=== PATIENT | male | born 1995 | race Caucasian/White ===

== ENCOUNTER 2021-07-27 13:57 | Emergency (ER) | payer MEDICAID ==
[2021-07-27] MEDS ORDERED: Metoclopramide 10 MG/2 ML SDV IVPUSH ONE (14:20)
[2021-07-27] MEDS ORDERED: Sodium Chloride 0.9% 10 ML Syringe FLUSH PRN (14:20)
[2021-07-27] MEDS ORDERED: Sodium Chloride 0.9% 1,000 ML IV ONE (14:20)
--- NOTE | 2021-07-27 14:42 | EDM.PDOC ---
ED HPI GENERAL MEDICAL PROBLEM - General Chief Complaint: Gastrointestinal Problem Stated Complaint: VOMITING Time Seen by Provider: 07/27/21 14:05 Source of Information: Reports: Patient History Limitations: Reports: No Limitations - History of Present Illness INITIAL COMMENTS - FREE TEXT/NARRATIVE: 26-year-old male presents the emergency department with complaints of vomiting. States he started vomiting approximately 5 AM this morning and has vomited approximately 5 times. He denies any fever chills or diarrhea associated with this. He denies any cough or shortness of breath or body aches. States he did have a bowel movement today and it was hard. States he only has a bowel movement every 2 to 3 days. States he had Thanksgiving meal yesterday and no one else that he ate with is ill. States he does smoke marijuana 3 times daily. Last smoked yesterday. Denies any issues with reflux. States he still has his appendix and gallbladder. - Related Data Allergies Allergy/AdvReac Type Severity Reaction Status Date / Time No Known Allergies Allergy Verified 07/27/21 14:07 Home Meds: Home Meds . [No Known Home Meds] 07/27/21 [History] Past Medical History Psychiatric History: Reports: ADHD, Depression - Infectious Disease History Infectious Disease History: Reports: None Social & Family History - Tobacco Use Tobacco Use Status *Q: Never Tobacco User - Caffeine Use Caffeine Use: Reports: Coffee, Soda - Recreational Drug Use Recreational Drug Use: No Other Recreational Drug Type: had medical marijuana card for anxiety and depression ED ROS GENERAL - Review of Systems Review Of Systems: Comprehensive ROS is negative, except as noted in HPI. ED EXAM, GI/ABD - Physical Exam Exam: See Below Exam Limited By: No Limitations General Appearance: Alert, WD/WN, No Apparent Distress Ears: Normal External Exam, Hearing Grossly Normal Nose: Normal Inspection Throat/Mouth: Normal Inspection, Normal Lips, Normal Voice, No Airway Compromise Head: Atraumatic Neck: Normal Inspection, Supple Respiratory/Chest: No Respiratory Distress, Lungs Clear, Normal Breath Sounds, No Accessory Muscle Use, Chest Non-Tender Cardiovascular: Normal Peripheral Pulses, Regular Rate, Rhythm, No Edema, No Murmur GI/Abdominal Exam: Normal Bowel Sounds, Soft, Non-Tender, No Distention (Male) Exam: Deferred Rectal (Males) Exam: Deferred Back Exam: Normal Inspection, Full Range of Motion Extremities: Normal Inspection, Normal Range of Motion, Non-Tender, No Pedal Edema, Normal Capillary Refill Neurological: Alert, Oriented, Normal Cognition Psychiatric: Normal Affect, Normal Mood Skin Exam: Warm, Dry, Intact, Normal Color, No Rash Lymphatic: No Adenopathy Course - Vital Signs Text/Narrative:: As stated above, patient presents with vomiting without abdominal pain or diarrhea. He is not febrile. The time of my exam, the patient is hemodynamically stable. Physical exam is unremarkable. He denies any abdominal discomfort with palpation. Will obtain a flatplate of the abdomen. Will also obtain lab studies to include a CBC, CMP, magnesium and a C-reactive protein. Patient will receive a liter of IV fluids as well as Reglan as he is likely dehydrated. Last Recorded V/S: Last Vital Signs Temp 97.0 F 07/27/21 14:12 Pulse 85 07/27/21 14:12 Resp 20 07/27/21 14:12 BP 124/84 07/27/21 14:12 Pulse Ox 97 07/27/21 14:12 - Orders/Labs/Meds Orders: Active Orders 24 hr Category Date Time Status Abdomen 1V Flat [CR] Stat Exams 07/27/21 14:20 Taken C-REACTIVE PROTEIN [CHEM] Stat Lab 07/27/21 14:40 Received COMPREHENSIVE METABOLIC PN,CMP [CHEM] Stat Lab 07/27/21 14:40 Received CORONAVIRUS COVID-19 RAND [MOLEC] Stat Lab 07/27/21 14:21 Ordered MAGNESIUM [CHEM] Stat Lab 07/27/21 14:40 Received UA RFX ZURDO AND CULT IF INDIC [URIN] Stat Lab 07/27/21 14:21 Ordered Sodium Chloride 0.9% [Saline Flush] Med 07/27/21 14:20 Active 10 ml FLUSH ASDIRECTED PRN Saline Lock Insert [OM.PC] Stat Oth 07/27/21 14:20 Ordered Medication Orders Sodium Chloride (Sodium Chloride 0.9% 10 Ml Syringe) 10 ml FLUSH ASDIRECTED PRN PRN Reason: Keep Vein Open Last Admin: 07/27/21 14:50 Dose: 10 ml Documented by: JOSHUA Labs: Laboratory Tests 07/27/21 Range/Units 14:40 WBC 11.42 H (4.23-9.07) K/mm3 RBC 4.80 (4.63-6.08) M/mm3 Hgb 15.3 (13.7-17.5) gm/dl Hct 43.6 (40.1-51.0) % MCV 90.8 (79.0-92.2) fl MCH 31.9 (25.7-32.2) pg MCHC 35.1 (32.2-35.5) g/dl RDW Std Deviation 41.8 (35.1-43.9) fL Plt Count 232 (163-337) K/mm3 MPV 10.4 (9.4-12.3) fl Neut % (Auto) 81.0 H (34.0-67.9) % Lymph % (Auto) 10.4 L (21.8-53.1) % Mccracken % (Auto) 7.4 (5.3-12.2) % Eos % (Auto) 0.9 (0.8-7.0) Baso % (Auto) 0.2 (0.1-1.2) % Neut # (Auto) 9.26 H (1.78-5.38) K/mm3 Lymph # (Auto) 1.19 L (1.32-3.57) K/mm3 Mccracken # (Auto) 0.84 H (0.30-0.82) K/mm3 Eos # (Auto) 0.10 (0.04-0.54) K/mm3 Baso # (Auto) 0.02 (0.01-0.08) K/mm3 Meds: Medications Generic Name Dose Route Start Last Admin Trade Name Freq PRN Reason Stop Dose Admin Sodium Chloride 10 ml 07/27/21 14:20 07/27/21 14:50 Sodium Chloride 0.9% 10 Ml Syringe FLUSH 10 ml ASDIRECTED PRN Administration Keep Vein Open Discontinued Medications Generic Name Dose Route Start Last Admin Trade Name Freq PRN Reason Stop Dose Admin Sodium Chloride 1,000 mls @ 999 mls/hr 07/27/21 14:20 07/27/21 14:50 Normal Saline IV 07/27/21 15:20 999 mls/hr ONETIME ONE Administration Metoclopramide HCl 7.5 mg 07/27/21 14:20 07/27/21 14:50 Metoclopramide 10 Mg/2 Ml Sdv IVPUSH 07/27/21 14:21 7.5 mg ONETIME ONE Administration - Re-Assessments/Exams Free Text/Narrative Re-Assessment/Exam: 07/27/21 15:05 Nursing staff notifies me that patient left. Departure - Departure Time of Disposition: 15:04 Disposition: Eloped 07 Condition: Good Clinical Impression: Vomiting - Discharge Information Referrals: Mary Beth Portillo PA [Primary Care Provider] - Forms: ED Department Discharge Sepsis Event Note (ED) - Focused Exam Vital Signs: Vital Signs Temp Pulse Resp BP Pulse Ox 07/27/21 14:12 97.0 F 85 20 124/84 97 - My Orders Last 24 Hours: My Active Orders 07/27/21 14:20 Abdomen 1V Flat [CR] Stat Sodium Chloride 0.9% [Saline Flush] 10 ml FLUSH ASDIRECTED PRN Saline Lock Insert [OM.PC] Stat 07/27/21 14:21 CORONAVIRUS COVID-19 RAND [MOLEC] Stat UA RFX ZURDO AND CULT IF INDIC [URIN] Stat 07/27/21 14:40 C-REACTIVE PROTEIN [CHEM] Stat COMPREHENSIVE METABOLIC PN,CMP [CHEM] Stat MAGNESIUM [CHEM] Stat - Assessment/Plan Last 24 Hours: My Active Orders 07/27/21 14:20 Abdomen 1V Flat [CR] Stat Sodium Chloride 0.9% [Saline Flush] 10 ml FLUSH ASDIRECTED PRN Saline Lock Insert [OM.PC] Stat 07/27/21 14:21 CORONAVIRUS COVID-19 RAND [MOLEC] Stat UA RFX ZURDO AND CULT IF INDIC [URIN] Stat 07/27/21 14:40 C-REACTIVE PROTEIN [CHEM] Stat COMPREHENSIVE METABOLIC PN,CMP [CHEM] Stat MAGNESIUM [CHEM] Stat
--- NOTE | 2021-07-27 16:18 | CR ---
Abdomen: Supine view of the abdomen was obtained. Comparison: No prior abdominal imaging is available. Bowel gas pattern appears within normal limits at this time. Several calcifications are seen within the pelvis which most likely represent phleboliths. Visualized lung bases are clear. Bony structures appear unremarkable. Impression: 1. Nothing acute is seen on supine abdominal x-ray. Diagnostic code #1
== END 2021-07-27 15:05 | disposition left against medical advice (07) ==
LOC: JD.ED 13:57
DX: R11.10 Vomiting, unspecified (principal)
CPT/HCPCS: 36415; 74018; 80053; 83735; 85025; 86140; 96374; 99284; J2765; J7030